=== PATIENT | female | born 1965 | race Caucasian/White ===

== ENCOUNTER → 2021-02-04 07:52 | Outpatient (CLI) | payer OTHER, SELFPAY ==
--- NOTE | ~2021-02-04 | MR_ITS ---
EXAMINATION: MR knee LT wo con DATE: 02/04/2021 08:36 INDICATION: Anterior left knee pain and popping TECHNIQUE: Magnetic resonance imaging (MRI) of the left knee was performed without intravenous contra st. Sequences included coronal PD-weighted FSE, coronal PD-weighted FS FSE, sagittal T2-weighted FSE , sagittal PD-weighted FS FSE and axial PD weighted fat saturated FSE. COMPARISON: None. FINDINGS: Medial compartment: Small radial tear along the inner free edge and involving less than one third of the width of the pos terior horn of the medial meniscus. Partial thickness cartilage loss with smooth chondral surface and without degenerative subchondral changes along the medial tibial plateau and anterior to central veronica ghtbearing medial femoral condyle. Lateral compartment: Lateral meniscus is normal. Small amount of marrow edema extending along a linear low signal intensit y nondisplaced likely impaction fracture along the posterior rim of the lateral tibial plateau. There appears be an associated deep chondral fissure overlying the fracture. Articular cartilage is otherw ise normal. Patellofemoral compartment: Partial-thickness chondral ulceration at the medial patellar facet extending to the patellar apical r idge where there is a tiny focus of subarticular edema. Partial-thickness chondral fissuring involvin g less than 50% the cartilage thickness and without degenerative subchondral changes at the lateral p atellar facet. Deep chondral ulceration with underlying mild cortical irregularity and small focus of mild subarticular edema at the caudal aspect of the medial trochlea. Remaining trochlear cartilage a ppears relatively preserved. Ligaments and tendons: Anterior and posterior cruciate ligaments are normal. The medial collateral ligament and fibular mario ateral ligament complex are normal. The extensor mechanism is normal. The visualized medial and later al hamstring tendons as well as the iliotibial band are normal. Fluid: Physiologic amount of fluid in the joint space. No loose osteochondral bodies identified. Small Lomeli 's cyst. Osseous/other: Bone alignment is normal. Nondisplaced fractures previously noted along the posterior margin of the l ateral tibial plateau. No pathologic marrow replacing process. IMPRESSION: 1. Nondisplaced fracture along the posterior margin of the lateral tibial plateau. 2. Small radial tear along the inner free edge of the posterior horn of the medial meniscus. 3. Mild osteoarthritis in the medial and patellofemoral compartments with moderate grade chondromalac ia at the former and moderate and high-grade chondromalacia at the latter. 4. Small Lomeli's cyst. Reviewed, dictated and finalized at location A. IMPRESSION: 1. Nondisplaced fracture along the posterior margin of the lateral tibial plate au. 2. Small radial tear along the inner free edge of the posterior horn of the med ial meniscus. 3. Mild osteoarthritis in the medial and patellofemoral compartments with moder ate grade chondromalacia at the former and moderate and high-grade chondromalac ia at the latter. 4. Small Lomeli's cyst.
== END ==
PROVIDERS: PCP Internal Medicine; Visit Provider Orthopaedic Surgery
DX: S83.242A Other tear of medial meniscus, current injury, left knee, initial encounter (principal); S82.145A Nondisplaced bicondylar fracture of left tibia, initial encounter for closed fracture; M17.12 Unilateral primary osteoarthritis, left knee; M71.22 Synovial cyst of popliteal space [Baker], left knee; M94.262 Chondromalacia, left knee
CPT/HCPCS: 73721

== ENCOUNTER 2022-08-27 12:15 | Emergency (ER) | payer OTHER, SELFPAY ==
--- NOTE | ~2022-08-27 | XR_ITS ---
Portable chest x-ray Comparison: 10/06/2015 Clinical History: Chest pain Findings: Lungs are clear, without focal consolidation or pleural effusion. Cardiomediastinal silho uette is stable. Bones and soft tissues are unremarkable. Impression: Normal chest. Reviewed, dictated and finalized at [facility]. IFIED ACTIVITIES DIRECTOR Impression: Normal chest.
[2022-08-27 12:21] VITALS: BP 140/86; PULSE 71; RESP 18; TEMP 36.9; O2SAT 100
--- NOTE | 2022-08-27 12:21 | ED.CHESTPAIN ---
HPI - Chest Pain General Chief Complaint: Chest Pain Stated Complaint: need ekg Time Seen by Provider: 08/27/22 12:21 Source: patient and family Limitations: no limitations History of Present Illness HPI narrative: 56 years old came to the emergency room from home complaining of chest pain mainly on the right side, heaviness, radiating to the back, started at 8 AM while sitting at rest. Was 8 out of 10 for 10 minutes then dropped gradually. Currently no pain. Patient reports history of nausea since August 08, 2022 after her methimazole increased from 20 mg once a day to 30 mg once a day. Patient reported that her family physician recommended to go to the emergency room to make sure her symptom has nothing to do with the increased dose of methimazole. She denies any fever, chills, vomiting, shortness of breath or having similar symptoms in the past. History of Graves' disease. Related Data Allergies Allergy/AdvReac Type Severity Reaction Status Date / Time No Known Allergies Allergy Unknown Verified 08/27/22 12:41 Review of Systems Review of Systems: All systems reviewed & are unremarkable except as noted in HPI and below PMFSH Past Medical History Medical History Adrenal abnormality Bleeding nose Constipation History of adverse reaction to anesthesia History of weight gain History of weight loss Pituitary abnormality Wears glasses Surgical History Surgical History History of cardiac radiofrequency ablation History of ovarian cystectomy History of pituitary surgery Family History Family History Other Depression Social History Social History Smoking status: Unknown if ever smoked Alcohol intake: current Drinks per week: 1 Exam Narrative: General appearance: Well-developed, well-nourished Skin: Normal color Head: Normocephalic, nontraumatic Eyes: Clear conjunctiva ENT: Oropharynx normal, ears normal, nose normal Neck: Supple, nontender Chest and respiratory: Airway patent, no respiratory distress, no accessory muscle use, diffuse tenderness across the chest mainly on the right side Heart: Regular rate/rhythm Abdomen: Soft, nontender, no organomegaly, quiet bowel sounds Vascular: Normal peripheral pulses, normal capillary refill. 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 Labs, EKG, chest x-ray ordered. Blood work-up showed decreased level of TSH, consistent with hyperthyroidism, normal troponin and normal D-dimer. Patient is telling me that her number today is much better than couple weeks ago. Patient had history of Hakan-Danlos syndrome, Graves' disease and depression. EKG showed no acute abnormalities, chest x-ray showed no acute abnormality, Costochondritis, chest wall muscle pain is my concern. Patient was advised to take ibuprofen 600 every 6 hours as needed. the pt was discharged to home.the pt,s condition upon discharge was fair,education was provided to the pt in reference to the final impression,discharge study results,treatment,prognosis and need for follow up . Differential Diagnosi
--- NOTE | 2022-08-27 12:31 | ECG_ITS ---
Measurements Intervals [place] Rate: 70 P: 27 GA: 156 QRS: -4 QRSD: 88 T: 51 QT: 384 QTc: 417 Interpretive Statements SINUS RHYTHM NONSPECIFIC ST & T-WAVE ABNORMALITY- ANTEROLAT/HIGH LAT LEADS BASELINE ARTIFACT- I, II, III, AVR, AVL, AVF, V3-V6 BORDERLINE ECG NO PREVIOUS ECG AVAILABLE FOR COMPARISON Electronically Signed On 08-27-2022 14:45:41 BLOW DOWN HELPER by Rafiq Pickering D.O.
[2022-08-27 12:32] VITALS: PULSE 76
[2022-08-27] MEDS: ONDANSETRON INJ 4 MG/2 ML VIAL IV PUSH (12:53)
[2022-08-27 12:54] LABS: Basophils Percent Auto 0.7 % (0.2-1.2); Eosinophils Absolute Auto 0.2 K/mm3 (0-0.3); Eosinophils Percent Auto 3.6 % (0-4.4); Hematocrit 35.2 % (37.0-47.0); Hemoglobin 12.1 g/dL (12.0-15.0); Immature Granulocyte Absolute 0.01 K/mm3 (0.00-0.031); Immature Granulocyte Percent A 0.2 % (0-0.5); Lymphocytes Absolute Auto 2.26 K/mm3 (0.9-3.2); Mean Corpuscular HGB Conc 34.4 g/dl (32-36); Mean Corpuscular Hemoglobin 29.8 pg (26-34); Mean Corpuscular Volume 86.7 fl (80-100); Mean Platelet Volume 9.1 fl (7.4-10.4); Monocytes Absolute Auto 0.4 K/mm3 (0.1-0.6); Monocytes Percent Auto 7.1 % (2.6-8.5); Neutrophils Absolute Auto 2.9 K/mm3 (1.3-6.7); Neutrophils Percent Auto 49.4 % (45.5-73.1); Platelet Count Result 236 k/mm3 (150-375); Red Blood Count 4.06 M/mm3 (4.2-5.4); Red Cell Distribution Width 12.5 % (11.5-14.5); White Blood Count 5.8 K/mm3 (4.5-10.0)
[2022-08-27 13:04] LABS: Alanine Aminotransferase 23 U/L (6-35); Albumin Level 3.9 g/dL (3.5-5.1); Alkaline Phosphatase 124 U/L (38-126); Anion Gap 3 mmol/L (8-16); Aspartate Amino Transferase 26 U/L (14-36); Bilirubin,Total 0.3 mg/dL (0.2-1.3); Blood Urea Nitrogen 14 mg/dL (7-17); Calcium 8.6 mg/dL (8.4-10.2); Carbon Dioxide 29 mmol/L (22-30); Chloride 99 mmol/L (98-107); Estimated CRCL calculation 71 ml/min; Estimated Glomerular Filt Rate > 60; Glucose 84 mg/dL (65-110); Potassium 3.4 mmol/L (3.4-5.0); Sodium 131 mmol/L (137-145)
[2022-08-27 13:08] LABS: Partial Thromboplastin Time 28.1 SECONDS (22.3-36.8); Prothrombin Time 12.9 Seconds (11.1-14.7)
[2022-08-27 13:15] LABS: Troponin I < 0.012 ng/mL (0.000-0.034)
[2022-08-27 13:26] LABS: D Dimer 0.39 ug/mL (<0.48)
[2022-08-27 13:35] LABS: Thyroid Stimulating Hormone < 0.015 uIU/mL (0.465-4.680)
[2022-08-27 13:40] VITALS: BP 112/61; PULSE 57; RESP 15; O2SAT 98
[2022-08-27 15:09] VITALS: BP 114/52; PULSE 74; RESP 18; O2SAT 99
== END 2022-08-27 15:10 | disposition home or self-care (01) ==
PROVIDERS: Emergency Provider Emergency Medicine; PCP Physician Assistant Medical
DX: R07.89 Other chest pain (principal); E05.90 Thyrotoxicosis, unspecified without thyrotoxic crisis or storm; Q79.60 Ehlers-Danlos syndrome, unspecified; R94.31 Abnormal electrocardiogram [ECG] [EKG]
CPT/HCPCS: 36415; 71045; 80053; 84443; 84484; 85025; 85380; 85610; 85730; 93005; 96374; 99284; J2405